=== PATIENT | male | born 1980 | race Caucasian/White ===

== ENCOUNTER 2020-02-29 13:04 | Emergency (ER) | payer SELFPAY ==
--- NOTE | 2020-02-29 14:01 | CR ---
Indication: Cough Technique: AP portable view of the chest. Comparison: None Findings: The heart is normal in size. The lungs are clear. No infiltrate, pleural effusion, or pneumothorax is identified. Impression: No acute cardiopulmonary process Dictated by Analisa Sanford MD @ Feb 29 2020 1:53PM Signed by Dr. Analisa Sanford @ Feb 29 2020 2:00PM
--- NOTE | 2020-02-29 14:11 | EDM.PDOC ---
ED HPI GENERAL MEDICAL PROBLEM - General Chief Complaint: Respiratory Problem Stated Complaint: POSSIBLE COVID SYMPTOMS Time Seen by Provider: 02/29/20 14:07 Source of Information: Reports: Patient History Limitations: Reports: No Limitations - History of Present Illness INITIAL COMMENTS - FREE TEXT/NARRATIVE: 39-year-old male past medical history TOB use presents for concern for COVID-19 infection. Patient notes that he has had positive exposure with 2 coworkers. States that yesterday afternoon around 5 PM he began to experience generalized fatigue, body aches, nausea, nonproductive cough, mild chest tightness, mild shortness of breath. Symptoms persisted this morning and he noticed that he could not taste or smell when he was eating his breakfast. No fevers noted - Related Data Allergies Allergy/AdvReac Type Severity Reaction Status Date / Time peanut Allergy Anaphylactic Verified 02/29/20 14:04 Shock Home Meds: Home Meds . [No Known Home Meds] 02/29/20 [History] Past Medical History - Past Health History Medical/Surgical History: Denies Medical/Surgical History - Infectious Disease History Infectious Disease History: Reports: Chicken Pox Social & Family History - Family History Family Medical History: Noncontributory - Caffeine Use Caffeine Use: Reports: Coffee, Energy Drinks, Soda, Tea - Recreational Drug Use Recreational Drug Use: No ED ROS GENERAL - Review of Systems Review Of Systems: Comprehensive ROS is negative, except as noted in HPI. ED EXAM, GENERAL - Physical Exam Exam: See Below Exam Limited By: No Limitations General Appearance: Alert, WD/WN, No Apparent Distress Throat/Mouth: Normal Inspection, Normal Voice, No Airway Compromise Head: Atraumatic, Normocephalic Neck: Normal Inspection Respiratory/Chest: No Respiratory Distress, Lungs Clear, Normal Breath Sounds, No Accessory Muscle Use Cardiovascular: Normal Peripheral Pulses, Regular Rate, Rhythm Extremities: Normal Inspection Neurological: Alert, Normal Gait Psychiatric: Normal Affect, Normal Mood Skin Exam: Warm, Dry, Intact, Normal Color Course - Vital Signs Last Recorded V/S: Last Vital Signs Temp 96.7 F L 02/29/20 14:04 Pulse 62 02/29/20 14:04 Resp 18 02/29/20 14:04 BP 102/74 02/29/20 14:04 Pulse Ox 98 02/29/20 14:04 - Orders/Labs/Meds Orders: Active Orders 24 hr Category Date Time Status CORONAVIRUS COVID-19 PCR [facility] Stat Lab 02/29/20 13:40 Received Labs: Laboratory Tests 02/29/20 Range/Units 14:15 SARS CoV-2 RNA Rapid OBED NEGATIVE (NEGATIVE) - Re-Assessments/Exams Free Text/Narrative Re-Assessment/Exam: 02/29/20 14:11 Chest x-ray unremarkable, vital signs normal. Will follow COVID-19 swab and disposition accordingly. 02/29/20 14:58 COVID-19 testing is negative. Will recommend patient to self isolate considering his symptoms. Will give information for respiratory clinic which is open on Monday for repeat testing. Return precautions discussed for shortness of breath, cough, fever. Departure - Departure Time of Disposition: 14:59 Disposition: Home, Self-Care 01 Condition: Good Clinical Impression: Viral syndrome - Discharge Information Instructions: COVID-19: How to Protect Yourself and Others - CDC, COVID-19 Frequently Asked Questions Referrals: PCP,None [Primary Care Provider] - Forms: ED Department Discharge Additional Instructions: Your COVID-19 swab was negative. Your chest x-ray was normal. There is no evidence of pneumonia. Your oxygen saturation which measures your blood's ability to carry oxygen was normal. The test that we use in the emergency department as a rapid test, it is not a definitive test, there is still a possibility that you may have COVID-19. I would recommend isolating and following up with either your primary care physician, or coming to our respiratory clinic which is open Monday through Monday during normal business hours. They can do a more sensitive test, but it does take a few days to get the results. The following information is given to patients seen in the emergency department who are being discharged to home. This information is to outline your options for follow-up care. We provide all patients seen in our emergency department with a follow-up referral. The need for follow-up, as well as the timing and circumstances, are variable depending upon the specifics of your emergency department visit. If you don't have a primary care physician on staff, we will provide you with a referral. We always advise you to contact your personal physician following an emergency department visit to inform them of the circumstance of the visit and for follow-up with them and/or the need for any referrals to a consulting specialist. The emergency department will also refer you to a specialist when appropriate. This referral assures that you have the opportunity for follow-up care with a specialist. All of these measure are taken in an effort to provide you with optimal care, which includes your follow-up. Under all circumstances we always encourage you to contact your private physician who remains a resource for coordinating your care. When calling for follow-up care, please make the office aware that this follow-up is from your recent emergency room visit. If for any reason you are refused follow-up, please contact the [facility] Emergency Department at and asked to speak to the emergency department charge nurse. Please follow up with your primary care physician. If you do not have a primary care physician, see below: [facility] [address] [place] [id number] [facility] [address] [place] [id number] Sepsis Event Note (ED) - Evaluation Sepsis Screening Result: No Definite Risk - Focused Exam Vital Signs: Vital Signs Temp Pulse Resp BP Pulse Ox 02/29/20 14:04 96.7 F L 62 18 102/74 98 - My Orders Last 24 Hours: My Active Orders 02/29/20 13:40 CORONAVIRUS COVID-19 PCR [facility] Stat - Assessment/Plan Last 24 Hours: My Active Orders 02/29/20 13:40 CORONAVIRUS COVID-19 PCR [facility] Stat
== END 2020-02-29 15:22 | disposition home or self-care (01) ==
LOC: MW.ED 13:04
DX: B34.9 Viral infection, unspecified (principal); Z20.828 Contact with and (suspected) exposure to other viral communicable diseases; Z91.010 Allergy to peanuts
CPT/HCPCS: 71045; 71045-26; 99282; 99283-25; U0002